=== PATIENT | female | born 1995 | race Caucasian/White ===

== ENCOUNTER 2023-05-05 08:46 | Outpatient (CLI) | payer OTHER | END 2023-05-05 08:49 | disposition home or self-care (01) | LOC: NUCLEAR 08:46 | PROVIDERS: ATTEND Obstetrics & Gynecology Gynecologic Oncology | DX: C56.9 Malignant neoplasm of unspecified ovary (principal); C53.9 Malignant neoplasm of cervix uteri, unspecified ==

== ENCOUNTER 2023-05-24 11:00 | Inpatient (IN) | payer OTHER ==
[2023-05-24] MEDS ORDERED: ZYRTEC10 M3 (14:01)
[2023-05-26] MEDS ORDERED: CHLORHEXIDINE GLUCONATE 120 ML BOTTLE TOP ONE ×2 (16:27→19:00)
[2023-05-26] MEDS ORDERED: CEFOXITIN SODIUM 2,000 MG VIAL IV ONE ×2 (16:27→19:00)
[2023-05-26] MEDS ORDERED: DIPHENHYDRAMINE HCL 50 MG/ML VIAL 1ML ONE (18:45)
[2023-05-26] MEDS ORDERED: DIPHENHYDRAMINE HCL/ZINC ACET 28.3 GM CREAM.GM. TOP ONE (19:00)
[2023-05-26] MEDS ORDERED: RINGERS SOLUTION,LACTATED 1,000 ML IV SCH (19:30)
[2023-05-26] MEDS ORDERED: MORPHINE SULFATE 4 MG/ML CARTRIDGE IV PRN (19:30)
[2023-05-26] MEDS ORDERED: ONDANSETRON HCL 2 MG/ML VIAL IV PRN (19:30)
[2023-05-26] MEDS ORDERED: VISTASEAL DUAL APPICATOR 1 EACH APPL TOP ONE (19:33)
[2023-05-26] MEDS ORDERED: THROMBIN,HU/FIBRINOGEN/CALCIUM 10 ML SYRINGE TOP ONE (19:33)
[2023-05-26] MEDS ORDERED: FAMOTIDINE/PF 20 MG/2 ML VIAL IV SCH (21:00)
[2023-05-26] MEDS ORDERED: DOCUSATE SODIUM 100MG CAP PO SCH (21:00)
[2023-05-26] MEDS ORDERED: THROMBIN,HU/FIBRINOGEN/CALCIUM 4 ML SYRINGE TOP ONE (21:15)
[2023-05-26] MEDS ORDERED: ONDANSETRON HCL 2 MG/ML VIAL ONE (21:49)
[2023-05-26] MEDS ORDERED: FAMOTIDINE/PF 20 MG/2 ML VIAL ONE (21:49)
[2023-05-26 23:14] LABS: MEAN CELL VOLUME 85.9 fL (80.00-100.00); MEAN CORPUSCULAR HEMOGLOBIN 28.8 pg (27.00-32.0); MEAN CORPUSCULAR HGB CONC 33.5 g/dl (32.0-36.0); PLATELET COUNT 208 K/uL (150-450); RED BLOOD COUNT 4.18 M/uL (4.00-6.00); RED CELL DISTRIBUTION WIDTH 14.6 % (11.5-14.5)
[2023-05-26 23:37] LABS: CALCIUM 8.6 mg/dL (8.5-10.1); CREATININE SERUM 0.67 mg/dL (0.55-1.02); GFR 106.39; POTASSIUM 3.59 mEq/L (3.5-5.1)
[2023-05-27] MEDS ORDERED: ACETAMINOPHEN 500 MG GEL..CAP PO SCH
[2023-05-27] MEDS ORDERED: CEFOXITIN SODIUM 2,000 MG VIAL IV ONE (00:55)
[2023-05-27] MEDS ORDERED: CEFOXITIN SODIUM 2,000 MG VIAL IV SCH (01:00)
[2023-05-27] MEDS ORDERED: ACETAMINOPHEN 500 MG GEL..CAP PO ONE (01:56)
[2023-05-27 03:49] LABS: HEMATOCRIT 34.2 % (36.0-45.00); HEMOGLOBIN 11.4 g/dL (12.0-15.00); MEAN CELL VOLUME 85.2 fL (80.00-100.00); MEAN CORPUSCULAR HEMOGLOBIN 28.5 pg (27.00-32.0); MEAN CORPUSCULAR HGB CONC 33.4 g/dl (32.0-36.0); PLATELET COUNT 200 K/uL (150-450); RED BLOOD COUNT 4.02 M/uL (4.00-6.00); RED CELL DISTRIBUTION WIDTH 14.4 % (11.5-14.5)
[2023-05-27 04:05] LABS: CALCIUM 8.8 mg/dL (8.5-10.1); CREATININE SERUM 1.21 mg/dL (0.55-1.02); GFR 53.79; POTASSIUM 4.25 mEq/L (3.5-5.1)
[2023-05-27] MEDS ORDERED: SIMETHICONE 125 MG CAPSULE PO SCH (09:00)
[2023-05-27] MEDS ORDERED: ENOXAPARIN SODIUM 40 MG/0.4 ML SYRINGE SUBCUTANEO SCH (09:00)
[2023-05-27] MEDS ORDERED: OxyCODONE HCL/APAP UD (PERCOCET) PO PRN (14:15)
[2023-05-27] MEDS ORDERED: ACETAMINOPHEN 500 MG GEL..CAP PO PRN (17:30)
[2023-05-28 01:28] LABS: CALCIUM 8.6 mg/dL (8.5-10.1); CREATININE SERUM 0.53 mg/dL (0.55-1.02); GFR 139.44; POTASSIUM 3.75 mEq/L (3.5-5.1)
== END 2023-05-28 17:29 | disposition home or self-care (01) | DRG 737 ==
LOC: EDSTATUS 11:00 → ADM 11:00 → OB/GYN 05-26 10:40 → O/R 05-26 10:40 → SURG 05-26 11:00 → OB/GYN 05-27 00:36
PROVIDERS: Obstetrics & Gynecology; ADMIT Obstetrics & Gynecology Gynecologic Oncology; ATTEND Obstetrics & Gynecology Gynecologic Oncology
PROC: 0UT04ZZ Resection of Right Ovary, Percutaneous Endoscopic Approach (ICD-10-PCS; 2023-05-26)
PROC: 07BC4ZZ Excision of Pelvis Lymphatic, Percutaneous Endoscopic Approach (ICD-10-PCS; 2023-05-26)
PROC: 0UT94ZZ Resection of Uterus, Percutaneous Endoscopic Approach (ICD-10-PCS; 2023-05-26)
PROC: 0UT54ZZ Resection of Right Fallopian Tube, Percutaneous Endoscopic Approach (ICD-10-PCS; 2023-05-26)
PROC: 07BD4ZZ Excision of Aortic Lymphatic, Percutaneous Endoscopic Approach (ICD-10-PCS; principal; 2023-05-26 15:00)
DX: C56.1 Malignant neoplasm of right ovary (principal); C77.5 Secondary and unspecified malignant neoplasm of intrapelvic lymph nodes; C79.82 Secondary malignant neoplasm of genital organs; Z20.822 Contact with and (suspected) exposure to COVID-19